=== PATIENT | male | born 1955 | race Caucasian/White ===

== ENCOUNTER 2019-08-04 14:22 | Outpatient (CLI) | payer BC ==
--- NOTE | 2019-08-04 17:26 | RAD ---
RIGHT SHOULDER THREE VIEWS: 08/04/19 No fracture, recent or remote was appreciated. There is, however, marked narrowing of the space betwe en the acromion and the humeral head which could indicate chronic rotator cuff thinning. There is als o bony spurring in the AC joint. No fracture, dislocation, or AC joint widening was seen. There is be ginning to be a small amount of spurring in the glenohumeral joint. IMPRESSION: 1. No fracture seen. 2. Degenerative changes as noted above. Particular narrowing of the acromiohumeral space which c ould indicate chronic rotator cuff problems. POS: HOME
== END 2019-08-04 14:23 | disposition home or self-care (01) ==
LOC: BURRAD 14:22
PROVIDERS: ATTEND Family Medicine
DX: M25.511 Pain in right shoulder (principal); M19.011 Primary osteoarthritis, right shoulder; M25.811 Other specified joint disorders, right shoulder

== ENCOUNTER 2019-10-13 07:52 | Outpatient (CLI) | payer BC ==
[2019-10-13] MEDS ORDERED: Iopamidol 370 76% 100 ML VIAL ONE (13:47)
--- NOTE | 2019-10-13 15:57 | CT ---
CT OF THE CHEST WITH CONTRAST: 10/13/[address] of the chest was done for evaluation of right sided chest pain. Axial slices were acquired after giving IV contrast followed by coronal and sagittal reconstructions. The mediastinum showed no mass or adenopathy. Some coronary artery calcifications are present, especi ally in the left coronary system. There is no pericardial effusion. The lungs are clear. There is no infiltrate, mass or effusion. Degenerative changes are mild and present in the spine. I see no bony anomalies of the ribs on either side. At most, some of the costovertebral articulations of the ribs show some arthritic change. Othe rwise, I find no reason for right sided chest pain. A few slices into the upper abdomen show no evidence of adrenal mass. The visible upper abdominal str uctures were unremarkable. IMPRESSION: No acute thoracic finding. POS: HOME
== END 2019-10-13 07:53 | disposition home or self-care (01) ==
LOC: BURCT 07:52
PROVIDERS: ATTEND Family Medicine
DX: R07.9 Chest pain, unspecified (principal); R07.81 Pleurodynia
CPT/HCPCS: 71260; Q9967